=== PATIENT | female | born 1965 | race Two or more races ===

== ENCOUNTER 2016-08-30 10:00 | Emergency (ER) | payer OTHER ==
[~2016-08-30] VITALS: Ht 167.6 cm; Wt 90.7 kg
[2016-08-30 10:49] LABS: BASOPHILS % (AUTO) 0.9 % (0.0-2.0); DIFF TOTAL % 100 %; EOSINOPHILS # (AUTO) 0.1 /CMM (0.0-0.7); EOSINOPHILS % (AUTO) 2.6 % (0.0-6.0); HEMATOCRIT 41 % (33-45); HEMOGLOBIN 13.7 g/dL (11.5-14.8); LYMPHOCYTES # (AUTO) 1.8 /CMM (0.8-4.8); LYMPHOCYTES % (AUTO) 46.7 % (20.0-44.0); MEAN CORPUSCULAR HEMOGLOBIN 31 PG (26.0-33.0); MEAN CORPUSCULAR HGB CONC 33 g/dl (31.0-36.0); MEAN CORPUSCULAR VOLUME 93 fL (82-100); MONOCYTES # (AUTO) 0.5 /CMM (0.1-1.30); MONOCYTES % (AUTO) 12.2 % (2.0-12.0); NEUTROPHILS # (AUTO) 1.5 /CMM (1.8-8.9); NEUTROPHILS % (AUTO) 37.6 % (43.0-81.0); PLATELET COUNT (AUTO) 300 /CMM (150-450); RED BLOOD CELL COUNT(AUTO) 4.43 MIL/uL (4.0-5.2); WHITE BLOOD COUNT (AUTO) 3.9 K/uL (4.3-11.0)
[2016-08-30 11:06] LABS: INR 1.01 (0.87-1.13); PROTHROMBIN TIME 10.9 SECS (9.5-12.7)
[2016-08-30 11:13] LABS: CREATININE 0.7 mg/dL (0.6-1.3); POTASSIUM 3.6 mmol/L (3.5-5.1)
[2016-08-30] MEDS ORDERED: DIAZEPAM 5 MG TABLET ONE (11:51)
[2016-08-30] MEDS ORDERED: diphenhydrAMINE HCL 50 MG/ML VIAL ONE (11:54)
[2016-08-30] MEDS ORDERED: DIAZEPAM 5 MG TABLET PO ONE (12:00)
[2016-08-30] MEDS ORDERED: diphenhydrAMINE HCL 50 MG/ML VIAL IM ONE (12:00)
[2016-08-30 12:10] VITALS: BP 115/72
== END 2016-08-30 12:12 | disposition home or self-care (01) ==
LOC: ER 10:04
DX: G24.9 Dystonia, unspecified (principal); M79.7 Fibromyalgia; Z88.6 Allergy status to analgesic agent; Z88.8 Allergy status to other drugs, medicaments and biological substances; R79.1 Abnormal coagulation profile
CPT/HCPCS: 36415; 71010; 72125; 80048; 85025; 85730; 93005; 96372; 99285; A4606; J1200; Z7610

== ENCOUNTER 2017-07-27 17:11 | Emergency (ER) | payer OTHER ==
[~2017-07-27] VITALS: Ht 154.9 cm; Wt 73.5 kg
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
[2017-07-27] MEDS ORDERED: IV NS 0.9% 1,000 ML BAG IV ONE (18:00)
--- NOTE | 2017-07-27 18:00 | NUR ---
IV ACCESS STARTED. 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 MEDICATED ORDERED.
[2017-07-27 18:01] LABS: BASOPHILS % (AUTO) 0.7 % (0.0-2.0); EOSINOPHILS # (AUTO) 0.1 /CMM (0.0-0.7); EOSINOPHILS % (AUTO) 2.2 % (0.0-6.0); HEMATOCRIT 44 % (33-45); HEMOGLOBIN 15.2 g/dL (11.5-14.8); LYMPHOCYTES % (AUTO) 39.6 % (20.0-44.0); MEAN CORPUSCULAR HEMOGLOBIN 33 PG (26.0-33.0); MEAN CORPUSCULAR HGB CONC 35 g/dl (31.0-36.0); MEAN CORPUSCULAR VOLUME 94 fL (82-100); MONOCYTES # (AUTO) 0.3 /CMM (0.1-1.30); MONOCYTES % (AUTO) 6.8 % (2.0-12.0); NEUTROPHILS # (AUTO) 2.7 /CMM (1.8-8.9); NEUTROPHILS % (AUTO) 50.7 % (43.0-81.0); PLATELET COUNT (AUTO) 374 /CMM (150-450); RDW COEFFICIENT OF VARIATION 13.1 (11.5-15.0); RED BLOOD CELL COUNT(AUTO) 4.67 MIL/uL (4.0-5.2); WHITE BLOOD COUNT (AUTO) 5.1 K/uL (4.3-11.0)
[2017-07-27 18:11] LABS: CALCIUM, SERUM 8.8 mg/dL (8.5-10.1); CREATININE 0.7 mg/dL (0.6-1.3); POTASSIUM 3.7 mmol/L (3.5-5.1)
[2017-07-27 18:16] LABS: INR 0.99 (0.87-1.13); PROTHROMBIN TIME 10.3 SECS (9.5-12.7)
[2017-07-27] MEDS ORDERED: TDAP [DIPH/PERTUSSIS/TET] 0.5 ML VIAL IM ONE ×2 (18:50→19:00)
--- NOTE | 2017-07-27 19:04 | NUR ---
PT RESTING IN BED. VSS. DENIES PAIN. ENDORSED TO MIAH SPARROW FOR ROSALIND.
[2017-07-27] MEDS ORDERED: IBUPROFEN 600 MG TABLET PO ONE (19:30)
--- NOTE | 2017-07-27 21:05 | NUR ---
PT AAOX4 NO ACUTE DISTRESS NOTED, RESP EVEN AND UNLABORED. CALL LIGHT WITHIN REACH.
--- NOTE | 2017-07-27 23:33 | NUR ---
PT ASLEEP, EASILY AROUSABLE, NO ACUE DISTRESS NOTED, RESP EVEN AND UNLABORED. CALL LIGHT WITHIN REACH.
[2017-07-28] MEDS ORDERED: IBUPROFEN 600 MG TABLET PO ONE (00:27)
[2017-07-28] MEDS ORDERED: ERYTHROMYCIN BASE OPHTH 3.5 GM TUBE ONE (01:54)
[2017-07-28] MEDS ORDERED: CIPROFLOXACIN HCL 3.5 GM TUBE EACHEYE SCH (02:00)
--- NOTE | 2017-07-28 02:08 | NUR ---
EYE PATCH APPLIED TO L EYE PER ER MD ORDER.
--- NOTE | 2017-07-28 02:28 | NUR ---
IV removed. Catheter intact and site benign. Pressure and 4x4 applied to site. No bleeding noted. Patient discharged to home in stable condition. Written and verbal after care instructions given. Patient verbalizes understanding of instruction. ambulatory with a steady gait.
[2017-07-28] MEDS ORDERED: ERYTHROMYCIN BASE OPHTH 3.5 GM TUBE OP ONE (02:30)
[2017-07-28 06:02] VITALS: BP 139/73
== END 2017-07-28 02:30 | disposition home or self-care (01) ==
LOC: ER 17:12
DX: S09.90XA Unspecified injury of head, initial encounter (principal); S00.12XA Contusion of left eyelid and periocular area, initial encounter; H05.20 Unspecified exophthalmos; M79.7 Fibromyalgia; Z88.5 Allergy status to narcotic agent; Z88.6 Allergy status to analgesic agent; Y04.0XXA Assault by unarmed brawl or fight, initial encounter; Y93.89 Activity, other specified; Y92.89 Other specified places as the place of occurrence of the external cause; Y99.8 Other external cause status
CPT/HCPCS: 36415; 70450; 70486; 80048; 85025; 85730; 90471; 90715; 96360; 99285; A4606; G0480; J7030; Z7610